=== PATIENT | male | born 1990 | race Caucasian/White ===

== ENCOUNTER 2017-03-23 11:46 | Emergency (ER) | payer OTHER ==
[2017-03-23 12:05] VITALS: BP 115/70
--- NOTE | 2017-03-23 12:44 | Diagnostic Imaging Report ---
DILAN ROB [facility] [address] [facility] [address] [address] Report Submission Date: Mar 23, 2017 12:28:23 PM SHAREBROKER Patient Study Name: VERNON SKINNER Date: Mar 23, 2017 12:11:28 PM SHAREBROKER Modality Type: CR Gender: M Description: LOWER EXTREMITY : 86 Institution: [facility] Physician: DILAN ROB Examination: Plain film knee History: Knee discomfort Findings: 3 views of the knee demonstrates normal cortical margins. No fracture. No dislocation. No joint effusion. No soft tissue irregularity. Impression: No acute osseous abnormality Electronically signed on Mar 23, 2017 12:28:23 PM SHAREBROKER by: Lanre RAMIREZ
--- NOTE | 2017-03-23 12:50 | ED Physician Documentation ---
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) - ROS CONST: no problems CVS/RESP: none MS/SKIN/LYMPH: none NEURO: denies: headache, head injury, anxiety, depression - PAST HX Past History: other (adhd ch backk kpain gerd-no meds-has only taken occasional IBU) Allergies/Adverse Reactions: Allergies Allergy/AdvReac Type Severity Reaction Status Date / Time No Known Drug Allergies Allergy Verified 03/23/17 12:05 Home Medications: Ambulatory Orders Medication Instructions Recorded Dextroamphetamine/Amphetamine 15 mg PO D 05/02/15 [Adderall Xr 15 mg Capsule] Ketorolac Tromethamine [Toradol] 10 mg PO TID #15 tablet 05/02/15 Ranitidine HCl 150 mg PO D 05/02/15 - SOCIAL HX Smoking History: greater than 1 pack/day Alcohol Use: rarely Drug Use: none - FAMILY HX Family History: no significant history - VITAL SIGNS Vital Signs: Vital Signs Temp Pulse Resp BP Pulse Ox 98.2 F 80 18 115/70 98 03/23/17 12:00 03/23/17 12:00 03/23/17 12:00 03/23/17 12:00 03/23/17 12:00 - REVIEWED ASSESSMENTS Nursing Assessment Reviewed: Yes Vitals Reviewed: Yes ED Results Lab/Radiology - Radiology Radiology Impressions: xray rt knee=no visible injury - Orders Orders: ED Orders Category Date Time Status KNEE 3 VIEWS [RAD] Stat Exams 03/23/17 Completed Lower Extremities Injury Phy - Physical Exam General Appearance: moderate distress Gait: antalgic gait Neuro/Vascular/Tendon: no vascular compromise, motor nml, sensation nml. No: abnml color Resp/CVS: chest non-tender, breath sounds nml, heart sounds nml, no resp. distress, lungs clear, reg. rate & rhythm. No: decreased breath sounds, wheezes , rales, rhonchi Abdomen: non-tender, pelvis stable Discharge Clincal Impression: fall w/ rt knee pain Referrals: Neeru Anaya FNP [Primary Care Provider] - 2 Days Comments: home rest elevate w/HMP IBU 600 TID. use cane or crutch f/u w/ ortho if not improving satis-reduce work Condition: Good Disposition: 01 HOME, SELF-CARE Decision to Admit: NO Decision Time: 12:58
== END 2017-03-23 12:50 | disposition home or self-care (01) ==
LOC: ED 11:46
DX: M25.561 Pain in right knee (principal); W17.89XA Other fall from one level to another, initial encounter; Y93.9 Activity, unspecified; Y92.9 Unspecified place or not applicable
CPT/HCPCS: 73562; 99283

== ENCOUNTER 2018-05-29 18:15 | Emergency (ER) | payer SELFPAY ==
[2018-05-29 19:11] LABS: BASOPHILS % 1.4 (0.0-1.5); EOSINOPHILS % 3.2 % (0.0-6.8); MEAN CORPUSCULAR HEMOGLOBIN 30.8 pg (28.0-34.0); MONOCYTES % 4.5 % (0.0-11.0)
[2018-05-29 19:12] LABS: NEUTROPHILS # 7.2 # k/uL (1.4-7.7)
[2018-05-29 19:14] LABS: eGFR (Non-African) > 60
--- NOTE | 2018-05-29 20:10 | ED Physician Documentation ---
Palpitations - HISTORIAN Historian: patient - HPI Stated Complaint: palpatations Chief Complaint: Palpitations Quality: pounding heart beat Further Comments: yes (27 patient reports 2 episodes of palpitations today - reports his smart watch read 177, patient complained of SOB with episode; was walking the fence row when episode continued, did not take his pulse during this time. Reported a second epidsode of smart watch reading 130 this afternoon. Also complains of dental pain. Pain is on adderall, reports last drink 2 weeks ago. Denies use of drugs, denies using energy drinks or diet pills. Denies chest pain with these episodes.) - ROS CONST: no problems RESP: denies: productive cough, bloody cough, other GI/: denies: nausea, vomiting with blood, black stools, abdominal pain, diarrhea, problems urinating, vomiting, other MS/SKIN/LYMPH: denies: ankle swelling, calf pain, rash, leg pain, other EYES/ENT: none NEURO/PSYCH: none - SOCIAL HX Smoking History: cigarettes - FAMILY HX Family History: other (AMI - father at age 66. 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 No ectopy, no complaint of palpitations. - EKG/XRAY/CT EKG: rhythm (SR, rate 95) ED Results Lab/Radiology - Lab Results Lab Results: Lab Results 05/29/18 05/29/18 05/29/18 19:00 18:55 18:55 WBC RBC Hgb Hct MCV MCH MCHC RDW Plt Count Neut % (Auto) Lymph % (Auto) [place] % (Auto) Eos % (Auto) Baso % (Auto) Neut # (Auto) Lymph # (Auto) [place] # (Auto) Eos # (Auto) Baso # (Auto) Sodium 136 mmol/L mmol/L (136-145) Potassium 3.7 mmol/L mmol/L (3.5-5.1) Chloride 101 mmol/L mmol/L (98-107) Carbon Dioxide 27 mmol/L mmol/L (22-30) BUN 18 mg/dL mg/dL (9-20) Creatinine 0.93 mg/dL mg/dL (0.66-1.25) Estimated Creat Clear 406 Est GFR ( Amer) > 60 (60 - ) Est GFR (Non-Af Amer) > 60 (60 - ) Glucose 89 mg/dL mg/dL (74-106) Calcium 9.7 mg/dL mg/dL (8.4-10.2) Total Bilirubin 0.2 mg/dL mg/dL (0.2-1.3) AST 31 U/L U/L (15-46) ALT 34 U/L U/L (13-69) Alkaline Phosphatase 66 U/L U/L (38-126) Troponin I < 0.03 ng/mL L ng/mL (0.03-0.06) Total Protein 7.5 g/dL g/dL (6.3-8.2) Albumin 5.2 g/dL H g/dL (3.5-5.0) Opiates Screen Negative ng/mL ng/mL (<300) Oxycodone Screen Negative ng/mL ng/mL (<100) Methadone Screen Negative ng/mL ng/mL (<200) Ur Barbiturates Screen Negative ng.mL ng.mL (<200) Tricyclic Antidepress Negative ng/mL ng/mL (<300) Phencyclidine Screen Negative ng/mL ng/mL (< 25) Amphetamines Screen Negative ng/mL ng/mL (<500) U Methamphetamines Scrn Negative ng/mL ng/mL (<500) MDMA Negative ng/mL ng/mL (<500) Benzodiazepines Screen Negative ng/mL ng/mL (<150) Urine Cocaine Screen Negative ng/mL ng/mL (<150) U Cannabinoids Screen Negative ng/mL ng/mL (< 50) 05/29/18 18:55 WBC 11.20 K/ul K/ul (4.00-12.00) RBC 5.16 M/ul M/ul (3.90-5.20) Hgb 15.9 g/dL g/dL (12.0-18.0) Hct 47.6 % % (37.0-53.0) MCV 92.0 fl fl (80.0-100.0) MCH 30.8 pg pg (28.0-34.0) MCHC 33.4 g/dL g/dL (30.0-36.0) RDW 13.6 % % (11.3-14.3) Plt Count 169 K/mm3 K/mm3 (130-400) Neut % (Auto) 63.9 % % (39.0-79.0) Lymph % (Auto) 27.0 % % (16.0-50.0) [place] % (Auto) 4.5 % % (0.0-11.0) Eos % (Auto) 3.2 % % (0.0-6.8) Baso % (Auto) 1.4 (0.0-1.5) Neut # (Auto) 7.2 # k/uL # k/uL (1.4-7.7) Lymph # (Auto) 3.0 # k/uL # k/uL (0.6-4.0) [place] # (Auto) 0.5 # k/uL # k/uL (0.0-0.9) Eos # (Auto) 0.4 # k/uL # k/uL (0.0-0.6) Baso # (Auto) 0.2 # k/uL # k/uL (0.0-0.5) Sodium Potassium Chloride Carbon Dioxide BUN Creatinine Estimated Creat Clear Est GFR ( Amer) Est GFR (Non-Af Amer) Glucose Calcium Total Bilirubin AST ALT Alkaline Phosphatase Troponin I Total Protein Albumin Opiates Screen Oxycodone Screen Methadone Screen Ur Barbiturates Screen Tricyclic Antidepress Phencyclidine Screen Amphetamines Screen U Methamphetamines Scrn MDMA Benzodiazepines Screen Urine Cocaine Screen U Cannabinoids Screen - Orders Orders: ED Orders Category Date Time Status Continuous EKG monitoring Q30M Care 05/29/18 18:54 Active Continuous Pulse Oximetry Q30M Care 05/29/18 18:54 Active CBC/PLATELET/DIFF Stat Lab 05/29/18 18:55 Completed CMP Stat Lab 05/29/18 18:55 Completed DRUG SCREEN URINE MEDICAL ONLY Stat Lab 05/29/18 19:00 Completed TROPONIN I (cTnI) Stat Lab 05/29/18 18:55 Completed EKG WITH COMPARISON Stat Ther 05/29/18 18:54 Ordered Palpitations Physical Exam - EXAM General Appearance: [id number] N EENT: eye inspection normal, ENT inspection normal, pharynx normal, no signs of dehydration, JOSE RAFAEL, no nystagmus, TM's nml, other (right upper back molar with cavity noted. ) RESPIRATORY: no respiratory distress, breath sounds nml, chest non-tender, respiratory distress CVS: reg rate & rhythm, heart sounds normal, equal pulses, no murmur, no gallop, PMI nml, no JVD, no friction rub, 24 ABDOMEN: soft, no organomegaly, normal bowel sounds, no abdominal bruit, no distension SKIN: normal color, warm/dry, NR, INT, PAL, DR EXTREMITIES: non-tender, normal range of motion, no evidence of injury, no edema, J, [employer] NEURO: oriented X3, CN's nml as tested, motor nml, sensation nml, mood/affect nml Discharge Clincal Impression: Heart palpitations, Dental caries Referrals: Primary Doctor,No [Primary Care Provider] - 2 Days Additional Instructions: Monitor your pulse rate 4 times a day and keep a record. Make a follow up appointment with your primary care doctor for wellness lab and re-evaluation on Saturday. Condition: Stable Disposition: 01 HOME, SELF-CARE Decision to Admit: NO Decision Time: 20:21
[2018-05-29 20:32] LABS: CANNABINOIDS NEGATIVE ng/mL (< 50); METHYLENEDIOXYMETHAMPHETAMINE NEGATIVE ng/mL (<500)
[2018-05-29 20:52] VITALS: BP 129/78
== END 2018-05-29 20:25 | disposition home or self-care (01) ==
LOC: ED 18:15
DX: R00.2 Palpitations (principal); K02.9 Dental caries, unspecified
CPT/HCPCS: 36415; 80053; 80377; 84484; 85025; 99283; 99284; G0481